=== PATIENT | male | born 1955 | race Caucasian/White ===

== ENCOUNTER 2017-09-29 13:14 | Day surgery (SDC) | payer OTHER ==
[~2017-09-29] VITALS: Ht 177.8 cm; Wt 95.2 kg
[~2017-09-29 13:14] MED LIST: ASPI325T4 PO; BISA5TAB6 PO; CEPH250S33 PO; DOCU-144 PO; IBUP-1542 PO; IBUP800T25 PO
[2017-09-29] MEDS ORDERED: NO MEDS (14:20)
[2017-09-29 14:22] VITALS: Ht 177.8 cm; Wt 95.2 kg
[2017-09-29] MEDS ORDERED: CEFAZOLIN 1 GM/50 ML (PMX) 0 ML IVPB ONE (14:37)
[2017-09-29] MEDS ORDERED: CEFAZOLIN 2 GM/50 ML (PMX) 50 ML IVPB ONE (14:39)
[2017-09-29] MEDS ORDERED: FENTAnyl 50 MCG/ML VIAL ONE (15:18)
[2017-09-29] MEDS ORDERED: MIDAZOLAM 1 MG/ML 2 ML INJ ONE ×2 (15:18)
--- NOTE | 2017-09-29 15:18 | OPPN ---
Date/Time of Note Date/Time of Note DATE: 09/29/17 TIME: 15:16 Due to poor prep recommend barium enema next year diverticulosis advised high- fiber diet follow-up with primary MD and I will see him in a month Operative Report Preoperative Diagnosis Screening colonoscopy Postoperative Diagnosis Diverticulosis poor prep Operation/Procedure Performed Colonoscopy Surgeon see signature line gynecological assistant None Anesthesia: moderate sedation (Versed 3 mg fentanyl 75 mcg moderate sedation time 22 minutes) Estimated blood loss: none Transfusion Required none Specimen None Grafts/Implants none Complications none LUPE NICKERSON MD Sep 29, 2017 15:18
--- NOTE | 2017-09-29 20:45 | GILP ---
DATE OF PROCEDURE: 09/29/2017 PROCEDURE: Screening colonoscopy. POSTOPERATIVE DIAGNOSIS: Somewhat poor prep in the left colon and diverticulosis of the left colon. DESCRIPTION OF PROCEDURE: The patient was put in left lateral decubitus after obtaining informed co nsent. Because he had cochlear implant, 2 grams of IV Ancef was given. Rectal exam done. Sedated with of a total of 3 mg IV Versed and 75 mcg of fentanyl. Rectal exam was normal. Advanced an Olym pus video colonoscope. Diverticulosis in left colon noted. rectum and sigmoid colon was not well p repped. A large amount of lavage was carried out. The right colon was easily entered. Cecum, asce nding colon normal. Cecum was identified with the ileocecal valve, appendiceal opening. Photograph y also done. Transverse colon normal. Descending and sigmoid colon diverticulosis. Rectum had sacha e stool as well as the sigmoid colon. This was washed. Grossly no lesions were noted. Plan will be to consider a followup as outpatient in month. Advise him to have a barium enema next year and follow up once again in my office. Dictated By: LUPE KIRKLAND Conf#: [id number] DID#: [id number] CC: Dr. Michael Castro;*EndCC*
== END 2017-09-29 15:41 | disposition home or self-care (01) ==
LOC: GIL 13:14
PROVIDERS: ATTEND Internal Medicine
DX: Z12.11 Encounter for screening for malignant neoplasm of colon (principal); K57.30 Diverticulosis of large intestine without perforation or abscess without bleeding; E66.9 Obesity, unspecified; Z68.30 Body mass index [BMI] 30.0-30.9, adult; H91.90 Unspecified hearing loss, unspecified ear
CPT/HCPCS: 45378; J0690; J2250; J3010